=== PATIENT | female | born 1990 | race Caucasian/White ===

== ENCOUNTER 2018-12-07 02:07 | Emergency (ER) | payer MEDICAID, OTHER ==
[~2018-12-07] VITALS: Ht 170.2 cm; Wt 59.4 kg
[2018-12-07] MEDS ORDERED: IV NS 0.9% 1,000 ML BAG IV ONE (02:30)
[2018-12-07 02:37] LABS: APPEARANCE,URINE CLEAR (CLEAR); BILIRUBIN,URINE NEGATIVE (NEGATIVE); BLOOD, URINE NEGATIVE Ery/uL (NEGATIVE); COLOR,URINE YELLOW (YELLOW); KETONES,URINE NEGATIVE (NEGATIVE); LEUKOCYTE ESTERASE ,URINE NEGATIVE (NEGATIVE); NITRITE, URINE NEGATIVE (NEGATIVE); PROTEIN,URINE NEGATIVE (NEGATIVE); UGLUCOSE NEGATIVE (NEGATIVE); UROBILINOGEN,URINE 0.2 EU/dL (0.2)
[2018-12-07 02:39] LABS: BASOPHILS % (AUTO) 0.5 % (0.0-2.0); EOSINOPHILS % (AUTO) 3.6 % (0.0-6.0); HEMATOCRIT 39 % (33-45); HEMOGLOBIN 13.4 g/dL (11.5-14.8); LYMPHOCYTES # (AUTO) 2.5 /CMM (0.8-4.8); LYMPHOCYTES % (AUTO) 31.5 % (20.0-44.0); MEAN CORPUSCULAR HGB CONC 35 g/dl (31.0-36.0); MEAN CORPUSCULAR VOLUME 93 fL (82-100); MONOCYTES # (AUTO) 0.3 /CMM (0.1-1.30); MONOCYTES % (AUTO) 3.7 % (2.0-12.0); NEUTROPHILS # (AUTO) 4.8 /CMM (1.8-8.9); NEUTROPHILS % (AUTO) 60.7 % (43.0-81.0); PLATELET COUNT (AUTO) 238 /CMM (150-450); RED BLOOD CELL COUNT(AUTO) 4.13 MIL/uL (4.0-5.2); WHITE BLOOD COUNT (AUTO) 7.9 K/uL (4.3-11.0)
--- NOTE | 2018-12-07 02:41 | NUR ---
PT FRIEND SANTIAGO .
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
--- NOTE | 2018-12-07 02:55 | NUR ---
PT RESTING IN BED, NAD NOTED. FLUIDS RUNNING. WILL CONTINUE TO MONITOR.
[2018-12-07 03:12] LABS: CALCIUM, SERUM 8.8 mg/dL (8.5-10.1); CREATININE 0.7 mg/dL (0.6-1.3); POTASSIUM 3.8 mmol/L (3.5-5.1)
[2018-12-07 03:17] LABS: ALBUMIN 3.9 g/dL (3.4-5.0); BILIRUBIN,DIRECT 0.1 mg/dL (0.0-0.2); BILIRUBIN,TOTAL 0.3 mg/dL (0.2-1.0); TOTAL PROTEIN, SERUM 8.3 g/dL (6.4-8.2)
[2018-12-07 03:18] LABS: SALICYLATE 0.8 mg/dL (2.8-20.0)
--- NOTE | 2018-12-07 04:25 | NUR ---
PT RESTING IN BED, NAD NOTED. WILL CONTINUE TO MONITOR.
--- NOTE | 2018-12-07 05:21 | NUR ---
PT AWAKE BUT ALTERED, UNABLE TO RECALL WHAT HAPPENED, SPEAKING INCOMPREHENSABLE WORDS. WILL CONTINUE TO MONITOR.
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
--- NOTE | 2018-12-07 07:10 | NUR ---
JEN WINTER#[id number], OFFICER BONNY([id number]) AND OFFICER ([id number]) AT BEDSIDE SPEAKING WITH PATIENT.
--- NOTE | 2018-12-07 07:23 | NUR ---
REPORT GIVEN TO JIMMY APONTE FOR LYUBOV.
--- NOTE | 2018-12-07 13:38 | NUR ---
CALLED GUNNER'S MATE SNOW GARCIA VOICEMAIL
--- NOTE | 2018-12-07 15:06 | NUR ---
RADHA MARTINEZWS AT BEDSIDE FOR EVAL
[2018-12-07 16:31] VITALS: BP 105/55
--- NOTE | 2018-12-07 16:31 | NUR ---
Patient discharged to home in stable condition. Written and verbal after care instructions given. Patient verbalizes understanding of instruction.IV removed. Catheter intact and site benign. Pressure and 4x4 applied to site. No bleeding noted. Gina at bedside and resources given to patient. Tap card provided. In no apparent distress noted.
== END 2018-12-07 16:31 | disposition home or self-care (01) ==
LOC: EDBD 02:09 → ER 02:09
DX: O9A.211 Injury, poisoning and certain other consequences of external causes complicating pregnancy, first trimester (principal); T50.902A Poisoning by unspecified drugs, medicaments and biological substances, intentional self-harm, initial encounter; F19.10 Other psychoactive substance abuse, uncomplicated; Z3A.09 9 weeks gestation of pregnancy; Y92.89 Other specified places as the place of occurrence of the external cause
CPT/HCPCS: 36415; 80048; 80076; 80305; 80307; 80329; 81001; 82962; 84703; 85025; 93005; 99284; A6403; G0480; J7030; 81000-TC

== ENCOUNTER 2019-02-01 06:26 | Emergency (ER) | payer MEDICAID ==
[~2019-02-01] VITALS: Ht 165.1 cm; Wt 57.2 kg
--- NOTE | 2019-02-01 06:50 | NUR ---
BIBS FOR C/O ANXIETY AND WITHDRAWAL SYMPTOM. "FEELING PINS AND NEEDLES ALL OVER MY BODY". PT REPORTED TRYING TO GET SOBER FROM THE ALCOHOL AND HAD A LAST DRINK 3 DAYS AGO. PT WAS PLACED ON A MONITOR,. VSS. WILL CONT TO MONITOR,
--- NOTE | 2019-02-01 07:05 | NUR ---
URINE COLLECTED AND CALLED LAB FOR NETWORK PROGRAMMER
[2019-02-01] MEDS ORDERED: CHLORDIAZEPOXIDE HCL 25 MG CAPSULE PO ONE (07:30)
[2019-02-01] MEDS ORDERED: CHLORDIAZEPOXIDE HCL 25 MG CAPSULE ONE (07:31)
--- NOTE | 2019-02-01 07:40 | NUR ---
PATIENT A/OX4, BREATHING EVEN AND UNLABORED, NO SOB NOTED. PATIENT'S VITALS STABLE. NEEDS ATTENDED. Patient discharged to home in stable condition. Written and verbal after care instructions given. Patient verbalizes understanding of instruction.
[2019-02-01 07:41] VITALS: BP 153/91
--- NOTE | 2019-02-01 07:42 | NUR ---
REFERRALS GIVEN FOR ALCOHOL AND SUBSTANCE ABUSE TREATMENT.
== END 2019-02-01 07:42 | disposition home or self-care (01) ==
LOC: ER 06:26
DX: F10.10 Alcohol abuse, uncomplicated (principal); F19.10 Other psychoactive substance abuse, uncomplicated; Y90.9 Presence of alcohol in blood, level not specified
CPT/HCPCS: 84703-TC

== ENCOUNTER 2019-03-15 11:41 | Emergency (ER) | payer MEDICAID, OTHER ==
[~2019-03-15] VITALS: Ht 165.1 cm; Wt 54.0 kg
[2019-03-15] MEDS ORDERED: LORAZEPAM 1 MG TABLET PO ONE (12:30)
[2019-03-15] MEDS ORDERED: LORAZEPAM 1 MG TABLET ONE (12:37)
--- NOTE | 2019-03-15 12:39 | NUR ---
Patient awake alert non distress patient follows command med given .
--- NOTE | 2019-03-15 13:06 | NUR ---
PA @ bedside for Care instruction
--- NOTE | 2019-03-15 13:14 | NUR ---
Patient discharged to home in stable condition. Written and verbal after care instructions given. Patient verbalizes understanding of instruction.
--- NOTE | 2019-03-15 13:15 | NUR ---
Patient DC home instruction given agrees to call pmd in AM patient able to ambulated to HW non difficulties she states her friend will pick her up
[2019-03-15 13:17] VITALS: BP 78/123
== END 2019-03-15 13:18 | disposition home or self-care (01) ==
LOC: ER 11:41
DX: F10.10 Alcohol abuse, uncomplicated (principal); F41.9 Anxiety disorder, unspecified; Y90.9 Presence of alcohol in blood, level not specified
CPT/HCPCS: J7030

== ENCOUNTER 2019-05-02 09:30 | Emergency (ER) | payer OTHER ==
[~2019-05-02] VITALS: Ht 167.6 cm; Wt 61.2 kg
--- NOTE | 2019-05-02 09:49 | NUR ---
CALLED ANA MARÍA
--- NOTE | 2019-05-02 10:15 | NUR ---
Patient ambulatory with steady gait. No distress noted.
--- NOTE | 2019-05-02 10:47 | NUR ---
Social service consult requested by for ETOH. Per MD notes, pt is a 28-year-old female who was brought on home due to alcohol abuse and stating, " I just can't stop drinking." SHEET METAL DUCT INSTALLER met with the pt bedside. SHEET METAL DUCT INSTALLER introduced self and explained her role. Pt is alert and oriented x 4. Pt. appears well groomed. Pt appeared intoxicated but is able to provide meaningful information. Pt stated, she resides with her boyfriend Phil, who is a functioning alcoholic. Pt stated, "I wish I could be a functioning alcoholic." Pt reports her mother who lives in [place] is an alcoholic as well. Pt is currently unemployed. Pt reports to have recently had an which is causing her to drink more. Pt. reports to drink up to 10 + beers per day. Pt has attended several treatment programs in the past such as [facility] and [facility]. Pt reports to have stayed sober for 3 months after completing the program at [facility]. Pt states that she is unable to go back to [facility] because she left on the last day of detox. Pt was attending AA meetings in the past but has stopped going. Pt states she has a psychiatric diagnosis of PTSD and was prescribed Hydralazine, but stopped taking the medication due to making her sick. Pt. was seeing a psychiatrist at [facility] in [place]. Pt currently denies suicidal and homicidal ideations and visual/auditory hallucinations at this time. Pt informed SHEET METAL DUCT INSTALLER her friend Jules is coming to pick her up when cleared for discharge. SHEET METAL DUCT INSTALLER provided active listening and supportive counseling to the pt. SHEET METAL DUCT INSTALLER encouraged pt to enroll in a detox program again and provided pt with the following mental health/ alcohol treatment program referrals: [facility], [phone], [facility] [phone] [facility] [phone] in addition to [facility] [phone], and also to [facility] [phone], [facility] [phone], [facility] [phone] and [phone]. SHEET METAL DUCT INSTALLER updated FADI Jay and FADI Pineda regarding pt's discharge plan.
[2019-05-02 11:10] VITALS: BP 118/81
--- NOTE | 2019-05-02 11:10 | NUR ---
Patient discharged to home in stable condition. Written and verbal after care instructions given. Patient verbalizes understanding of instruction.
== END 2019-05-02 11:10 | disposition home or self-care (01) ==
LOC: ER 09:32
DX: F10.20 Alcohol dependence, uncomplicated (principal); F41.9 Anxiety disorder, unspecified; Y90.9 Presence of alcohol in blood, level not specified

== ENCOUNTER 2020-09-07 21:13 | Emergency (ER) | payer OTHER ==
[~2020-09-07] VITALS: Ht 162.6 cm; Wt 54.4 kg
[2020-09-07] MEDS ORDERED: KETOROLAC TROMETHAMINE 15 MG/ML VIAL ONE (21:39)
[2020-09-07] MEDS ORDERED: ACETAMINOPHEN ES 500 MG TABLET ONE (21:39)
--- NOTE | 2020-09-07 21:51 | NUR ---
PATIENT TO ER BED 9 C/O RIGHT FLANK PAIN SINCE 3x HRS AGO. PATIENT STATE THAT SHE IS FROM [facility] FOR ALCOHOL DETOX. SPOKE WITH LV [phone](RN) FOR AUTHORIZATION TO GIVE MEDICATION BECAUSE PATIENT WAS REFUSING MEDICATIONS UNLESS IT IS OKAY'D BY STAFF AT [facility]. PATIENT IS ALERT AND ORIENTED X4. DENIES SOB. PATIENT IS CONNECTED TO THE MONITOR.
[2020-09-07 21:53] LABS: BASOPHILS # (AUTO) 0.1 /CMM (0.0-0.2); BASOPHILS % (AUTO) 0.8 % (0.0-2.0); EOSINOPHILS % (AUTO) 2.9 % (0.0-6.0); HEMATOCRIT 41 % (33-45); HEMOGLOBIN 14.1 g/dL (11.5-14.8); LYMPHOCYTES # (AUTO) 3.1 /CMM (0.8-4.8); LYMPHOCYTES % (AUTO) 34.4 % (20.0-44.0); MEAN CORPUSCULAR HGB CONC 35 g/dl (31.0-36.0); MEAN CORPUSCULAR VOLUME 95 fL (82-100); MONOCYTES # (AUTO) 0.6 /CMM (0.1-1.30); MONOCYTES % (AUTO) 6.4 % (2.0-12.0); NEUTROPHILS % (AUTO) 55.5 % (43.0-81.0); PLATELET COUNT (AUTO) 288 /CMM (150-450)
[2020-09-07 21:54] LABS: BILIRUBIN,URINE NEGATIVE (NEGATIVE); COLOR,URINE YELLOW (YELLOW); LEUKOCYTE ESTERASE ,URINE NEGATIVE (NEGATIVE); NITRITE, URINE NEGATIVE (NEGATIVE); PROTEIN,URINE NEGATIVE (NEGATIVE); UGLUCOSE NEGATIVE (NEGATIVE); UROBILINOGEN,URINE 0.2 EU/dL (0.2)
[2020-09-07] MEDS: IV NS 0.9% 1,000 ML BAG IV ONE (22:00)
--- NOTE | 2020-09-07 22:00 | NUR ---
ADDENDUM: Intravenous End Time Documentation: Normal saline 1 liter (IV-WO) : start time: 2200 PM ; end time: 2300 PM: IV site: [facility] PIV # 18 Port # 1
[2020-09-07] MEDS: KETOROLAC TROMETHAMINE INJ 30 MG/ML VIAL IV ONE (22:01)
[2020-09-07] MEDS: ACETAMINOPHEN 325 MG TABLET PO ONE (22:01)
[2020-09-07 22:10] LABS: CALCIUM, SERUM 9.1 mg/dL (8.5-10.1); CREATININE 0.9 mg/dL (0.6-1.3); POTASSIUM 3.6 mmol/L (3.5-5.1)
--- NOTE | 2020-09-07 23:01 | NUR ---
US PROCEDURE FINISHED.
--- NOTE | 2020-09-07 23:33 | NUR ---
PATIENT RETURNED FROM CT
--- NOTE | 2020-09-08 00:17 | NUR ---
Selena ross in [place] - 09/08/20 at 0038 by INDY CALLED [facility] TO PROOF OPERATOR PATIENT, WILL ARRIVE IN 20~30MINUTES
[2020-09-08] MEDS ORDERED: NAPR-1164 PO (00:28)
--- NOTE | 2020-09-08 00:31 | NUR ---
CALLED [facility] TO COMMUNICATIONS SUPERVISOR PATIENT, WILL ARRIVE IN 20~30MINUTES
--- NOTE | 2020-09-08 00:37 | NUR ---
Patient discharged to home in stable condition. Written and verbal after care instructions given. Patient verbalizes understanding of instruction.
--- NOTE | 2020-09-08 00:37 | NUR ---
IV removed. Catheter intact and site benign. Pressure and 4x4 applied to site. No bleeding noted.
[2020-09-08 00:38] VITALS: BP 116/79
== END 2020-09-08 01:18 | disposition home or self-care (01) ==
LOC: ER 21:13
DX: R50.9 Fever, unspecified (principal); R11.0 Nausea; R10.9 Unspecified abdominal pain; F17.200 Nicotine dependence, unspecified, uncomplicated; F41.9 Anxiety disorder, unspecified
CPT/HCPCS: 36415; 74176; 76705; 76770; 80048; 81003; 84703; 85025; 96361; 96374; 99285; 99406; J1885; J7030

== ENCOUNTER 2020-09-15 11:39 | Emergency (ER) | payer OTHER ==
[~2020-09-15] VITALS: Ht 167.6 cm; Wt 59.9 kg
[~2020-09-15 11:39] MED LIST: NAPR-1164 PO
--- NOTE | 2020-09-15 11:40 | NUR ---
Called NO response
--- NOTE | 2020-09-15 11:47 | NUR ---
Called NO response
[2020-09-15 11:56] VITALS: BP 113/58
[2020-09-15] MEDS ORDERED: AMOX-430 PO (12:08)
[2020-09-15] MEDS ORDERED: PRED20TA PO (12:08)
--- NOTE | 2020-09-15 12:12 | NUR ---
Patient discharged to home in stable condition. Written and verbal after care instructions given. Patient verbalizes understanding of instruction.
== END 2020-09-15 12:14 | disposition home or self-care (01) ==
LOC: ER 11:42
DX: H66.92 Otitis media, unspecified, left ear (principal); F41.9 Anxiety disorder, unspecified

== ENCOUNTER 2020-09-18 10:23 | Emergency (ER) | payer OTHER ==
[~2020-09-18] VITALS: Ht 170.2 cm; Wt 72.6 kg
[~2020-09-18 10:23] MED LIST changes: +AMOX-430 PO; +PRED20TA PO
[2020-09-18 10:33] VITALS: BP 129/92
[2020-09-18] MEDS ORDERED: CARBAMIDE PEROXIDE OTIC 15 ML BOTTLE ONE (11:38)
[2020-09-18] MEDS ORDERED: CARBAMIDE PEROXIDE OTIC 15 ML BOTTLE OT ONE (12:00)
--- NOTE | 2020-09-18 12:56 | NUR ---
LEFT EAR IRRIGATED WITH WARM NS.
--- NOTE | 2020-09-18 13:49 | NUR ---
Patient discharged to home in stable condition. Written and verbal after care instructions given. Patient verbalizes understanding of instruction.
== END 2020-09-18 13:49 | disposition home or self-care (01) ==
LOC: ER 10:25
DX: H66.92 Otitis media, unspecified, left ear (principal); F41.9 Anxiety disorder, unspecified; F10.10 Alcohol abuse, uncomplicated; F17.200 Nicotine dependence, unspecified, uncomplicated; Y90.9 Presence of alcohol in blood, level not specified; Z79.899 Other long term (current) drug therapy

== ENCOUNTER 2020-11-15 00:54 | Emergency (ER) | payer OTHER ==
[~2020-11-15] VITALS: Ht 170.2 cm; Wt 72.6 kg
--- NOTE | 2020-11-15 01:11 | NUR ---
PT PRATIMA [phone] FROM [facility] C/O ETOH FOUND WITH 12 BOTTLES OF WHITE CLAW +SI WITH NO PLAN -HI. [employer] AT BEDSIDE. PT PLACED IN GOWN. BELONGINGS PLACED IN LOCKER. SITTER PRESENT AT BEDSITE. PT ALERT AND OREITNED X2 NON LABORED BREATHING
--- NOTE | 2020-11-15 01:15 | NUR ---
URINE COLLECTED AND SENT TO LAB
--- NOTE | 2020-11-15 01:16 | NUR ---
COVID SWAB COLLECTED AND SENT TO LAB
[2020-11-15 01:22] LABS: BASOPHILS # (AUTO) 0.1 K/uL (0.0-0.2); BASOPHILS % (AUTO) 1.9 % (0.0-2.0); EOSINOPHILS % (AUTO) 2.5 % (0.0-6.0); HEMATOCRIT 40 % (33-45); HEMOGLOBIN 13.8 g/dL (11.5-14.8); LYMPHOCYTES # (AUTO) 2.7 K/uL (0.8-4.8); LYMPHOCYTES % (AUTO) 59.8 % (20.0-44.0); MEAN CORPUSCULAR HGB CONC 35 g/dl (31.0-36.0); MEAN CORPUSCULAR VOLUME 94 fL (82-100); MONOCYTES # (AUTO) 0.3 K/uL (0.1-1.30); MONOCYTES % (AUTO) 5.7 % (2.0-12.0); NEUTROPHILS # (AUTO) 1.4 K/uL (1.8-8.9); NEUTROPHILS % (AUTO) 30.1 % (43.0-81.0); PLATELET COUNT (AUTO) 278 K/uL (150-450); WHITE BLOOD COUNT (AUTO) 4.6 K/uL (4.3-11.0)
[2020-11-15 01:33] LABS: CALCIUM, SERUM 8.3 mg/dL (8.5-10.1); CREATININE 0.8 mg/dL (0.6-1.3); POTASSIUM 3.6 mmol/L (3.5-5.1)
[2020-11-15 01:40] LABS: ALBUMIN 4.1 g/dL (3.4-5.0); BILIRUBIN,DIRECT 0.1 mg/dL (0.0-0.2); BILIRUBIN,TOTAL 0.2 mg/dL (0.2-1.0); TOTAL PROTEIN, SERUM 8.2 g/dL (6.4-8.2)
[2020-11-15 02:07] LABS: BASOPHILS % (MANUAL) 0 % (0.0-2.0); EOSINOPHILS % (MANUAL) 0 % (0-4); LYMPHOCYTES % (MANUAL) 49 % (16-48); MONOCYTES % (MANUAL) 10 % (0-11.0); NEUTROPHILS % (MANUAL) 41 (42-76)
--- NOTE | 2020-11-15 07:32 | NUR ---
THE PATIENT IS AWAKE, ALERT AND ORIENTED X3. DENIES PAIN. IN ROOM AIR AND DENIES SOB. RESPIRATION REGULAR AND UNLABORED. WILL CONTINUE TO MONITOR THE PATIENT.
--- NOTE | 2020-11-15 08:11 | NUR ---
THE PATIENT HAVING BREAKFAST. TOLERATES PROVIDED FOOD WELL.
--- NOTE | 2020-11-15 10:34 | NUR ---
family chance called. updated. left phone # [phone]
--- NOTE | 2020-11-15 10:58 | NUR ---
Called boyfrienailyn Villarreal and he will be here to pickle maker the patient at 1200. The patient is made aware.
--- NOTE | 2020-11-15 12:41 | NUR ---
The patient is alert and oriented x4. Denies pain. In room air and denies SOB. Respiration regular and unlabored. The patient denies SI/HI. Stable gait. In no apparent distress. Patient discharged to home in stable condition. Written and verbal after care instructions given. Patient verbalizes understanding of instruction. The patient is picked up by her boyfriend.
[2020-11-15 12:42] VITALS: BP 111/68
== END 2020-11-15 12:43 | disposition home or self-care (01) ==
LOC: ER 00:56
DX: R45.851 Suicidal ideations (principal); F10.129 Alcohol abuse with intoxication, unspecified; Y90.8 Blood alcohol level of 240 mg/100 ml or more; F41.9 Anxiety disorder, unspecified; Z91.013 Allergy to seafood; Z20.822 Contact with and (suspected) exposure to COVID-19
CPT/HCPCS: 36415; 80048; 80076; 80143; 80307; 80320; 85007; 85025; 87426; 99285; C9803; G0480

== ENCOUNTER 2021-07-24 10:50 | Emergency (ER) | payer OTHER ==
[~2021-07-24] VITALS: Ht 170.2 cm; Wt 55.3 kg
--- NOTE | 2021-07-24 11:04 | NUR ---
JUAN RENEE (MOTHER) TEL [phone]
--- NOTE | 2021-07-24 11:09 | NUR ---
SLICK RA60 "Binge Drinking/usually drinks 10-15 Beers daily. Called Mom saying- drinking way too much and she called 911". The patient is alert and oriented x3. Denies SI/HI. Denies having hallucinations. In room air and denies SOB. Respiration regular and unlabored. Attached to the monitor. [place] provided for comfort. Will continue to monitor the patient.
--- NOTE | 2021-07-24 11:40 | NUR ---
SPOKE TO MOTHER JUAN, NOT ABLE TO MOLD CLAMPER PATIENT, NO MONEY TO ARRANGE FOR UBER EITHER
[2021-07-24 11:50] VITALS: BP 125/74
--- NOTE | 2021-07-24 11:50 | NUR ---
Patient discharged to home in stable condition. Written and verbal after care instructions given. Patient verbalizes understanding of instruction.
== END 2021-07-24 11:50 | disposition home or self-care (01) ==
LOC: ER 10:52
DX: F10.229 Alcohol dependence with intoxication, unspecified (principal); F41.9 Anxiety disorder, unspecified; F17.200 Nicotine dependence, unspecified, uncomplicated; Z91.013 Allergy to seafood; Z79.899 Other long term (current) drug therapy; Y90.9 Presence of alcohol in blood, level not specified